=== PATIENT | female | born 1995 | race Caucasian/White ===

== ENCOUNTER 2019-05-24 07:33 | Day surgery (SDC) | payer OTHER ==
[~2019-05-24] VITALS: Ht 160 cm; Wt 76.2 kg
[~2019-05-24 07:33] MED LIST: FOLI1TAB19 PO; PREN-385 PO; TOPI50TA PO
[2019-05-24 08:32] LABS: BASOPHILS % (AUTO) 0.2 % (0.0-2.0); EOSINOPHILS # (AUTO) 0.2 K/uL (0-0.4); EOSINOPHILS % (AUTO) 2.2 % (0.0-4.0); HEMATOCRIT 38.6 % (36-48); HEMOGLOBIN 12.7 g/dL (12.0-16.0); LYMPHOCYTES # (AUTO) 2.8 K/uL (2.5-16.5); LYMPHOCYTES % (AUTO) 25.3 % (20.5-51.1); MEAN CORPUSCULAR HEMOGLOBIN 27 pg (27-31); MEAN CORPUSCULAR HGB CONC 33 g/dL (33-37); MEAN CORPUSCULAR VOLUME 82.4 fL (80-94); MONOCYTES # (AUTO) 0.7 K/uL (0.8-1.0); MONOCYTES % (AUTO) 6.7 % (1.7-9.3); NEUTROPHILS # (AUTO) 7.2 K/uL (1.8-7.7); NEUTROPHILS % (AUTO) 65.6 % (42.2-75.2); PLATELET COUNT (AUTO) 232 K/uL (140-450); RED BLOOD CELL COUNT(AUTO) 4.68 MIL/uL (4.20-5.40); RED CELL DISTRIBUTION WIDTH 14.4 % (11.6-13.7)
[2019-05-24 08:47] LABS: PROTHROMBIN TIME 9.5 secs (10.8-13.4)
[2019-05-24] MEDS ORDERED: LIDOCAINE 2% 1000 MG/50 ML VIAL INJ ONE (12:00)
[2019-05-24] MEDS ORDERED: fentaNYL 0.05 MG/ML VIAL ONE (12:04)
[2019-05-24] MEDS ORDERED: fentaNYL 0.05 MG/ML VIAL IVP SCH (13:00)
== END 2019-05-24 13:05 | disposition home or self-care (01) ==
LOC: MDS 07:33 → MTU 08:02 → MDS 13:05
PROVIDERS: ATTEND Internal Medicine Gastroenterology
DX: K76.0 Fatty (change of) liver, not elsewhere classified (principal); I10 Essential (primary) hypertension; G40.909 Epilepsy, unspecified, not intractable, without status epilepticus; H91.93 Unspecified hearing loss, bilateral; G43.909 Migraine, unspecified, not intractable, without status migrainosus; E78.00 Pure hypercholesterolemia, unspecified; K21.9 Gastro-esophageal reflux disease without esophagitis; E66.9 Obesity, unspecified; Z68.29 Body mass index [BMI] 29.0-29.9, adult; Z90.49 Acquired absence of other specified parts of digestive tract; Z98.890 Other specified postprocedural states; Z79.899 Other long term (current) drug therapy
CPT/HCPCS: 36415; 47000; 76942; 81025; 85025; 85610; 85730; 88307; 88313; J2001; J3010; Q0092

== ENCOUNTER 2019-07-27 22:54 | Emergency (ER) | payer OTHER ==
[~2019-07-27] VITALS: Ht 160 cm; Wt 84.4 kg
[2019-07-27 23:17] VITALS: BP 141/96
--- NOTE | 2019-07-27 23:23 | NUR ---
PT AMBULATED TO BED WITH MOTHER
--- NOTE | 2019-07-27 23:35 | NUR ---
24 YO F BIB MOM PRESENTS TO ED C/O 07/06 CRUSHING CP, SOB, TEMPORAL SOUTH, NAUSEA, DIZZINESS AND CONFUSION X 20 MINS. PT STATES SHE WAS SITTING ON THE COUCH WATCHING TV WHEN SUDDEN ONSET OF S/SX OCCURED. PT STATES "THIS HAS HAPPENED BEFORE WHEN I WAS ABOUT TO HAVE A SEIZURE." MOM STATES LAST SEIZURE OCCURED 3 YEARS AGO. -- PT AWAKE, A/O X 4. ANSWERING QUESTIONS WITH HELP OF MOM. POSSIBLE DEVELOPMENTAL DELAY OR LEARNING DISABILITY NOTED. BEHAVIOR APPROPRIATE. CALM, COOPERATIVE. -- SKIN PINK, WARM, DRY. BREATHING EVEN, UNLABORED. SPO2 99% ON RA. PMH-- HTN, SEIZURES RX-- KEPPRA, LORAZEPAM
--- NOTE | 2019-07-27 23:38 | NUR ---
DR. BOSWELL EVALUATING AT BEDSIDE.
[2019-07-27] MEDS ORDERED: IBUPROFEN 600 MG TAB PO ONE (23:40)
[2019-07-27] MEDS ORDERED: ONDANSETRON 4 MG ODT PO ONE (23:40)
--- NOTE | 2019-07-27 23:44 | NUR ---
PHLEB AT BEDSIDE DRAWING LABS.
[2019-07-27 23:53] LABS: BASOPHILS % (AUTO) 0.2 % (0.0-2.0); EOSINOPHILS # (AUTO) 0.2 K/uL (0-0.4); HEMATOCRIT 37.9 % (36-48); HEMOGLOBIN 12.6 g/dL (12.0-16.0); LYMPHOCYTES # (AUTO) 2.3 K/uL (2.5-16.5); LYMPHOCYTES % (AUTO) 24.8 % (20.5-51.1); MEAN CORPUSCULAR HEMOGLOBIN 27 pg (27-31); MEAN CORPUSCULAR HGB CONC 33 g/dL (33-37); MEAN CORPUSCULAR VOLUME 82.8 fL (80-94); MONOCYTES # (AUTO) 0.7 K/uL (0.8-1.0); MONOCYTES % (AUTO) 7.2 % (1.7-9.3); NEUTROPHILS # (AUTO) 6.2 K/uL (1.8-7.7); NEUTROPHILS % (AUTO) 65.8 % (42.2-75.2); PLATELET COUNT (AUTO) 214 K/uL (140-450); RED BLOOD CELL COUNT(AUTO) 4.58 MIL/uL (4.20-5.40); RED CELL DISTRIBUTION WIDTH 13.7 % (11.6-13.7); WHITE BLOOD COUNT (AUTO) 9.5 K/uL (4.8-10.8)
--- NOTE | 2019-07-28 | NUR ---
PT AMBULATED TO WITH STEADY GAIT.
--- NOTE | 2019-07-28 00:15 | NUR ---
PT AMBULATED TO WITH STEADY GAIT.
[2019-07-28 00:17] LABS: ANION GAP 11.9 (8-16); CARBON DIOXIDE 27.7 mmol/L (21-32); CREATININE 0.8 mg/dL (0.6-1.3); POTASSIUM 3.6 mmol/L (3.5-5.1)
[2019-07-28 00:32] LABS: ALBUMIN 3.6 g/dL (3.4-5.0); TOTAL BILIRUBIN 0.2 mg/dL (0.0-1.0)
--- NOTE | 2019-07-28 01:28 | NUR ---
US AT BEDSIDE.
[2019-07-28 01:44] VITALS: BP 119/73
== END 2019-07-28 01:44 | disposition home or self-care (01) ==
LOC: MED 22:54
DX: M94.0 Chondrocostal junction syndrome [Tietze] (principal); K76.0 Fatty (change of) liver, not elsewhere classified; R11.0 Nausea; I10 Essential (primary) hypertension; Z86.69 Personal history of other diseases of the nervous system and sense organs; Z79.899 Other long term (current) drug therapy
CPT/HCPCS: 36415; 76705; 80053; 83690; 85025; 99284; Q0092; Q0162

== ENCOUNTER 2020-10-09 16:53 | Emergency (ER) | payer OTHER ==
[~2020-10-09] VITALS: Ht 160 cm; Wt 90.7 kg
[2020-10-09 17:10] VITALS: BP 127/83
--- NOTE | 2020-10-09 17:20 | NUR ---
PT C/O NON-RADIATING LEFT SIDED CHEAT PAIN WITH PRESSURE SENSATION AND LEFT ARM NUMBNESS, DIZZINESS, AND OCCASIONAL SOB FOR 3 DAYS. DENIES FEVER, COUGH, N/V/D. PT PRESENTS WITHOUT DIAPHORESIS OR RESPIRATORY DISTRESS. A&OX4. PMH: ANXIETY, HTN, SEIZURE MEDS: KEPPRA, BUSPIRONE, AMLODIPINE
[2020-10-09] MEDS ORDERED: ASPIRIN 325 MG TAB PO ONE (17:35)
[2020-10-09] MEDS ORDERED: ACETAMINOPHEN 325 MG TAB PO ONE (17:35)
--- NOTE | 2020-10-09 17:54 | NUR ---
XRAY IS AT BEDSIDE.
[2020-10-09 17:56] LABS: ANION GAP 13.6 (8-16); CARBON DIOXIDE 28.2 mmol/L (21-32); CREATININE 0.7 mg/dL (0.6-1.3); POTASSIUM 3.8 mmol/L (3.5-5.1)
[2020-10-09 18:12] LABS: BASOPHILS # (AUTO) 0.1 K/uL (0.00-0.22); BASOPHILS % (AUTO) 0.6 % (0.0-2.0); EOSINOPHILS # (AUTO) 0.2 K/uL (0-0.4); EOSINOPHILS % (AUTO) 1.9 % (0.0-4.0); HEMATOCRIT 38.9 % (36-48); HEMOGLOBIN 12.8 g/dL (12.0-16.0); LYMPHOCYTES # (AUTO) 2.7 K/uL (2.5-16.5); LYMPHOCYTES % (AUTO) 28.2 % (20.5-51.1); MEAN CORPUSCULAR HEMOGLOBIN 26 pg (27-31); MEAN CORPUSCULAR HGB CONC 33 g/dL (33-37); MEAN CORPUSCULAR VOLUME 78.7 fL (80-94); MONOCYTES # (AUTO) 0.7 K/uL (0.8-1.0); MONOCYTES % (AUTO) 7.7 % (1.7-9.3); NEUTROPHILS # (AUTO) 5.8 K/uL (1.8-7.7); NEUTROPHILS % (AUTO) 61.6 % (42.2-75.2); PLATELET COUNT (AUTO) 234 K/uL (140-450); RED BLOOD CELL COUNT(AUTO) 4.94 MIL/uL (4.20-5.40); RED CELL DISTRIBUTION WIDTH 14.7 % (11.6-13.7); WHITE BLOOD COUNT (AUTO) 9.4 K/uL (4.8-10.8)
[2020-10-09 18:26] VITALS: BP 148/80
== END 2020-10-09 18:26 | disposition home or self-care (01) ==
LOC: MED 16:53
DX: R07.9 Chest pain, unspecified (principal); F41.9 Anxiety disorder, unspecified; I50.9 Heart failure, unspecified; I11.0 Hypertensive heart disease with heart failure; R56.9 Unspecified convulsions; Z79.899 Other long term (current) drug therapy
CPT/HCPCS: 36415; 71045; 80048; 81002; 81025; 84484; 85025; 93005; 99285